=== PATIENT | male | born 1965 | race Caucasian/White ===

== ENCOUNTER → 2018-04-28 | Day surgery (SDC) | payer OTHER ==
[~2018-04-28] MED LIST: ACETAMINOPHEN 325 MG TAB PO PRN; ASPIRIN EC 325 MG TAB PO ONE; ATROPINE SULFATE 1 MG/10 ML SYR IVP PRN; DIAZEPAM 5 MG TAB PO ONE; FAMOTIDINE 20 MG TAB PO ONE; IOPAMIDOL (ISOVUE-370) 150 ML BTL IV ONE; LIDOCAINE 1% 300 MG/30 ML SDV ONE; MIDAZOLAM 2 MG/2 ML VIAL ONE; NITROGLYCERIN 0.4 MG BTL SL PRN; NS 1,000 ML IV SCH; ONDANSETRON 4 MG/2 ML VIAL IVP PRN; TEMAZEPAM 15 MG CAP PO PRN; diphenhydrAMINE 25 MG CAP PO ONE; fentaNYL 100 MCG/2 ML INJ ONE
[2018-04-28 09:19] LABS: PLATELET COUNT 117 10^3/uL (150-400)
--- NOTE | 2018-04-28 09:31 | PDPROPOC ---
Sedation Plan of Care Sedation Plan of Care: mental status noted, patient educated of risks, benefits , alternatives, patient can tolerate sedation ASA Classification: ASA 2 Planned drugs: fentanyl, midazolam Mallampati Score: Class 2 Mallampati Reference Image: Patient passed 3-3-2 rule?: Yes
--- NOTE | 2018-04-28 09:32 | PDHPUP ---
History & Physical Update H&P update statement: This history and physical update is based on an assessment of the patient which was completed after admission or registration (within 24 hours), but prior to the surgery/procedure. H&P update: H&P reviewed & patient examined, no change in patient's condition since H&P completed
[2018-04-28 10:28] LABS: INR 1.08 (0.83-1.16); PROTIME(PATIENT) 14.2 SEC (12.0-15.0)
--- NOTE | 2018-04-28 11:18 | CPIP ---
DATE OF PROCEDURE: 04/28/2018 INDICATION FOR PROCEDURE: Preoperative aortic AVR. PROCEDURE: 1. Nonselective right groin sheathogram. 2. 7-Faroese sheath in the right common femoral vein. 3. Right heart catheterization. 4. Bilateral coronary angiography. HISTORY: Briefly, this is a 52-year-old male with history of worsening dyspnea on exertion. The pat ient had an ultrasound, echocardiographic evidence as worsening underlying bicuspid, severe aortic st enosis. The patient was consented for a right and left heart catheterization, anticipation for event ual open AVR. DESCRIPTION OF PROCEDURE: After informed consent was obtained, the patient was brought to [facility] where the right groin was prepped and draped in a sterile fashion. ____Using lidocaine, a short 7-Faroese sh eath was introduced into the patient's right common femoral vein. A 6-Faroese sheath in the right com mon femoral artery. A JL4 catheter was advanced to the left coronary artery. The left coronary tenzin ry revealed normal left main. Left circumflex artery appeared to be codominant circulation giving of f a large marginal 1 proximally and an LPLS distally which was healthy and free of disease. There wa s what appeared to be a ramus intermedius coming off which was healthy and free of disease. The LAD appeared to be a long vessel which was healthy and free of disease with no significant issues. ____this was not a high diagonal artery, this was a ramus intermedius. After these images obtained, t he JL4 catheter was removed. The JR4 catheter was advanced to the right coronary artery. Images of the right coronary artery revealed normal os prox mid distal RCA and RPDA. Again, this is a codomina nt circulation. At this time, the JR4 catheter was removed below the FiberWire. A right heart diomedes terization was then advanced. Wedge pressure was mean of 11, A-wave of 12, V-wave of 13, PA pressure was systolic 24, diastolic 13, mean of 17, RV pressure systolic 34, diastolic 1 end of 12. RA press ure was mean of 7, A-wave 10, V-wave 9. Cardiac output was measured to be approximately 6.6 by [employer] with a cardiac index of 3.4. AO saturation was 99%. PA saturation was 83%. At this time, the [place]- [place] catheter was removed. Right groin was closed with 6-Faroese Angio-Seal. The 7-Faroese sheath was closed with manual pressure. Patient tolerated the procedure well with no complications. IMPRESSION: 1. Normal coronary arteries. 2. Normal pulmonic pressures. 3. Normal cardiac output. PLAN: The patient will be worked up as an outpatient for further evaluation by Dr. Willis from [facility] for open AVR. /[id number]/MODL
--- NOTE | 2018-04-30 08:36 | CPEKG ---
Test Reason : OPEN Blood Pressure : / mmHG Vent. Rate : 068 BPM Atrial Rate : 067 BPM P-R Int : 153 ms QRS Dur : 091 ms QT Int : 397 ms P-R-T Axes : 032 079 027 degrees QTc Int : 423 ms Sinus rhythm Confirmed by Giovanni Olivo ([id number]) on 04/30/2018 8:36:24 AM Referred By: Confirmed By:Giovanni Olivo
== END | disposition home or self-care (01) ==
LOC: FCATH 08:40
PROVIDERS: ATTEND Internal Medicine Cardiovascular Disease
DX: I35.0 Nonrheumatic aortic (valve) stenosis (principal); R06.02 Shortness of breath; R06.83 Snoring; F90.1 Attention-deficit hyperactivity disorder, predominantly hyperactive type
CPT/HCPCS: C1760; J1644; J2250; J3010; Q9967

== ENCOUNTER → 2018-05-12 | Outpatient (CLI) | payer OTHER | LOC: FIMAGING 08:18 | PROVIDERS: ATTEND Thoracic Surgery (Cardiothoracic Vascular Surgery) | DX: I35.0 Nonrheumatic aortic (valve) stenosis (principal) ==

== ENCOUNTER 2018-05-13 08:45 | Inpatient (IN) | payer OTHER ==
[2018-05-29] MEDS ORDERED: PHENYLEPHRINE HCL 50 MG in NS 250 ML IV ONE (06:00)
[2018-05-29] MEDS ORDERED: ceFAZolin 2 GM/DEXTROSE 100 ML IV ONE (06:00)
[2018-05-29] MEDS ORDERED: MUPIROCIN 2% 22 GM OINT NS ONE (06:00)
[2018-05-29] MEDS ORDERED: niCARdipine/NACL 200 ML IV ONE (06:00)
[2018-05-29] MEDS ORDERED: NOREPINEPHRINE BITARTRATE 16 MG in NS 250 ML IV ONE (06:00)
[2018-05-29] MEDS ORDERED: MANNITOL 25% 12.5 GM/50 ML VIAL IVP ONE (06:00)
[2018-05-29] MEDS ORDERED: CITRATE DEXTROSE SOLN 500 ML BAG MISC ONE (06:00)
[2018-05-29] MEDS ORDERED: AMINOCAPROIC ACID 5 GM/20 ML VIAL IV ONE (06:00)
[2018-05-29] MEDS ORDERED: SODIUM BICARBONATE 20 MEQ, LIDOCAINE 1% 10 ML in NORMOSOL-R 1,000 ML MISC ONE (06:00)
[2018-05-29] MEDS ORDERED: INSULIN REGULAR HUMAN 100 UNIT in NS 100 ML IV ONE (06:00)
[2018-05-29] MEDS ORDERED: LR 1,000 ML IV ONE (06:07)
[2018-05-29] MEDS ORDERED: MILRINONE/DEXTROSE/100 ML BAG IV ONE (06:16)
[2018-05-29] MEDS ORDERED: CALCIUM CHLORIDE 1 GM/10 ML INJ ONE ×2 (06:16→06:18)
[2018-05-29] MEDS ORDERED: PROTAMINE SULFATE 50 MG/5 ML VIAL IVP ONE (06:16)
[2018-05-29] MEDS ORDERED: AMIODARONE HCL 150 MG/3 ML VIAL ONE ×2 (06:17→06:19)
[2018-05-29] MEDS ORDERED: niCARdipine/NACL/200 ML BAG IV ONE (06:17)
[2018-05-29] MEDS ORDERED: NA BICARBONATE 50 MEQ/50 ML VIAL ONE (06:17)
[2018-05-29] MEDS ORDERED: DOPamine/DEXTROSE 400 MG/250 ML BAG IV ONE (06:17)
[2018-05-29] MEDS ORDERED: HEPARIN 10,000 UNIT/10 ML MDV (1,000 UNIT/ML) ONE ×2 (06:17→06:19)
[2018-05-29] MEDS ORDERED: NITROGLYCERIN/D5W 50 MG/250 ML BOTTLE IV ONE (06:18)
[2018-05-29] MEDS ORDERED: LIDOCAINE 2% 100 MG/5 ML SYR ONE (06:18)
[2018-05-29] MEDS ORDERED: ADENOSINE 6 MG/2 ML VIAL ONE (06:18)
[2018-05-29] MEDS ORDERED: ceFAZolin 1 GM VIAL ONE (06:18)
[2018-05-29] MEDS ORDERED: ALBUMIN 5% 250 ML BOTTLE IV ONE ×4 (06:18→14:45)
[2018-05-29] MEDS ORDERED: MAGNESIUM SULFATE 1 GM/2 ML VIAL ONE (06:19)
[2018-05-29] MEDS ORDERED: CITRATE DEXTROSE SOLN 500 ML BAG ONE (06:19)
[2018-05-29] MEDS ORDERED: methylPREDNISolone SOD SUCC 1 GM/8 ML VIAL ONE (06:19)
[2018-05-29] MEDS ORDERED: MIDAZOLAM 2 MG/2 ML VIAL IVP ONE (06:49)
--- NOTE | 2018-05-29 06:55 | PDANEPAE ---
ANE History of Present Illness 52 yo for avr ANE Past Medical History - Cardiovascular History Hx Hypertension: No Hx Arrhythmias: Yes Hx Chest Pain: No Hx Coronary Artery / Peripheral Vascular Disease: No Hx CHF / Valvular Disease: Yes Hx Palpitations: No Cardiovascular History Comment: MURMUR. AORTIC STENOSIS - Pulmonary History Hx COPD: No Hx Asthma/Reactive Airway Disease: No Hx Recent Upper Respiratory Infection: No Hx Oxygen in Use at Home: No Hx Sleep Apnea: No Sleep Apnea Screening Result - Last Documented: Negative - Neurologic History Hx Cerebrovascular Accident: No Hx Seizures: No Hx Dementia: No - Endocrine History Hx Diabetes: No - Renal History Hx Renal Disorders: Yes Renal History Comment: NOCTURIA - Liver History Hx Hepatic Disorders: No - Neurological & Psychiatric Hx Hx Neurological and Psychiatric Disorders: No - Cancer History Hx Cancer: No - Congenital Disorder History Hx Congenital Disorders: No - GI History Hx Gastrointestinal Disorders: Yes Gastrointestinal History Comment: HX OF COLON POLYPS. INTERMITTENT HEARTBURN USES TUMS - Other Health History Other Health History: CURRENTLY HAS SOME MILD URI SYMPTOMS WITH FEVER COUGH NON PRODUCTIVE - Chronic Pain History Chronic Pain: No - Surgical History Prior Surgeries: FRANCK ING HERNIA 2015. TONSILLECTOMY. VASECTOMY. COLONOSCOPY ANE Review of Systems Review of Systems: - Exercise capacity METS (RN): 4 METS ANE Patient History - Allergies Allergies/Adverse Reactions: No Known Allergies Allergy (Verified 04/21/18 17:28) - Home Medications Home medications: home medication list seen and reviewed Home Medications: Adderall 10 mg Tablet 05/29/18 [Last Taken 1 Month Ago ~04/29/18] Coq10 05/29/18 [Last Taken 05/28/18] Magnesium 05/29/18 [Last Taken 05/04/18] Multivitamins 05/29/18 [Last Taken 1 Week Ago ~05/22/18] Turmeric 05/29/18 [Last Taken 05/28/18] Vitamin C 05/29/18 [Last Taken 05/27/18] Vitamin D3 05/29/18 [Last Taken 05/28/18] Vyvanse 05/29/18 [Last Taken 05/28/18] - NPO status NPO Status: no food or drink >8 hours NPO Since - Liquids (Date): 05/29/18 NPO Since - Liquids (Time): 00:00 NPO Since - Solids (Date): 05/28/18 NPO Since - Solids (Time): 22:00 - Anes Hx Anes Hx: no prior problems - Smoking Hx Smoking Status: Never smoked ANE Labs/Vital Signs - Vital Signs Blood Pressure: 126/80 Heart Rate: 69 Respiratory Rate: 18 O2 Sat (%): 94 Height: 5 ft 8 in Weight: 76.204 kg ANE Physical Exam - Airway Neck exam: FROM Mallampati Score: Class 2 Mouth exam: normal dental/mouth exam - Pulmonary Pulmonary: no respiratory distress - Cardiovascular Cardiovascular: regular rate and rhythym - ASA Status ASA Status: III ANE Anesthesia Plan Anesthesia Plan: general endotracheal anesthesia Lines/Monitors: arterial line, central line, TOMÁS
[2018-05-29] MEDS ORDERED: MIDAZOLAM 2 MG/2 ML VIAL ONE (06:57)
[2018-05-29] MEDS ORDERED: DEXMEDETOMIDINE HCL 400 MCG in NS 100 ML IV SCH (07:00)
[2018-05-29] MEDS ORDERED: fentaNYL 100 MCG/2 ML INJ ONE (07:08)
[2018-05-29] MEDS ORDERED: REMIFENTANIL HCL 1 MG VIAL ONE (07:08)
[2018-05-29] MEDS ORDERED: PROPOFOL/EMULSION 500 MG/50 ML BOTTLE IV ONE (07:08)
[2018-05-29] MEDS ORDERED: ROCURONIUM 100 MG/10 ML VIAL ONE (07:09)
[2018-05-29] MEDS ORDERED: DEXAMETHASONE 4 MG/ML VIAL ONE (07:09)
[2018-05-29] MEDS ORDERED: SUGAMMADEX SODIUM 200 MG/2 ML VIAL IVP ONE (09:35)
[2018-05-29] MEDS ORDERED: ONDANSETRON 4 MG/2 ML VIAL ONE (09:35)
[2018-05-29] MEDS ORDERED: KETOROLAC 30 MG/1 ML SDV ONE (09:35)
[2018-05-29] MEDS ORDERED: BUPIVACAINE/EPI 0.5% 30 ML SDV ONE (09:35)
[2018-05-29] MEDS ORDERED: CEPACOL LOZENGE PO PRN (10:47)
[2018-05-29] MEDS ORDERED: BISACODYL 10 MG SUPP PR PRN (10:47)
[2018-05-29] MEDS ORDERED: niCARdipine/NACL 200 ML IV PRN (10:47)
[2018-05-29] MEDS ORDERED: SODIUM CL NASAL 45 ML BTL EACHNARE PRN (10:47)
[2018-05-29] MEDS ORDERED: ONDANSETRON 4 MG/2 ML VIAL IVP PRN (10:47)
[2018-05-29] MEDS ORDERED: POTASSIUM Cl (KCl) 50 ML IV PRN (10:47)
[2018-05-29] MEDS ORDERED: ONDANSETRON DISINTEGRATING 4 MG TAB PO PRN (10:47)
[2018-05-29] MEDS ORDERED: POLYETHYLENE GLYCOL 3350 17 GM PKT PO PRN (10:47)
[2018-05-29] MEDS ORDERED: MAGNESIUM HYDROXIDE 30 ML UDCUP PO PRN (10:47)
[2018-05-29] MEDS ORDERED: METOCLOPRAMIDE 10 MG/2 ML VIAL IVP PRN (10:47)
[2018-05-29] MEDS ORDERED: D50W 25 GM/50 ML SYR IVP PRN (10:47)
[2018-05-29] MEDS ORDERED: MEPERIDINE 25 MG/0.5 ML AMP IVP PRN (10:47)
[2018-05-29] MEDS ORDERED: fentaNYL 100 MCG/2 ML INJ IVP PRN (10:47)
[2018-05-29] MEDS ORDERED: LACTULOSE 20 GM/30 ML UDCUP PO PRN (10:47)
[2018-05-29] MEDS ORDERED: PANTOPRAZOLE SODIUM 40 MG VIAL IVP ONE (10:47)
[2018-05-29] MEDS ORDERED: oxyCODONE IR 5 MG TAB PO PRN (10:59)
[2018-05-29] MEDS ORDERED: INSULIN REGULAR HUMAN 100 UNIT in NS 100 ML IV SCH (11:00)
[2018-05-29] MEDS ORDERED: NS 1,000 ML IV SCH (11:00)
--- NOTE | 2018-05-29 11:19 | GOP ---
DATE OF OPERATION: 05/29/2018 SURGEON: Jerome Willis DO CAMPGROUND CARETAKER: Hemant. ANESTHESIOLOGIST: Estiven. PREOPERATIVE DIAGNOSIS: Critical aortic stenosis. POSTOPERATIVE DIAGNOSIS: Critical aortic stenosis. PROCEDURE PERFORMED: Aortic valve replacement through a minimally invasive upper sternotomy with a # 23 Inspiris bioprosthesis. FINDINGS: DESCRIPTION OF PROCEDURE: Patient was consented for surgery, brought to the operating room, intubate d. Monitoring lines were placed. Transesophageal echo was placed by Anesthesia. A partial upper st ernotomy teeing it off the third intercostal space was performed. A retractor was placed. Pericardi um was opened and tacked to the skin. Patient was heparinized and cannulated in the ascending aorta and right atrium without difficulty. A PA vent was placed as well. Cardiopulmonary bypass was begun . Transverse aortotomy was performed in a heavily calcified bicuspid aortic valve with extension down o nto the septum, and the mitral valve was carefully excised and debrided with CO2 infused and copious irrigation. We then placed interrupted 2-0 Tycron pledgeted mattress sutures through a 23 mm Inspiri s valve and secured with Cor-Knots. Aortotomy was closed in a 2-layer fashion. Cross-clamp was removed with suction on the ascending aor tic vent in Trendelenburg until no further air was identified. Patient was then easily weaned from b ypass and the heparin was reversed with protamine. The cannula was removed and oversewn. 2 ventricu lar pacing wires, 1 mediastinal drain placed into the left pleura and across the mediastinum was also placed. The thymic fat and pericardium were loosely reapproximated. The sternum was closed in thaddeus dard fashion. Patient was returned to ICU in stable condition. /[id number]/MODL
--- NOTE | 2018-05-29 11:41 | PDMN ---
Medical Necessity Medical necessity: [facility] S290 cardiac valve replacement or repair - INPT only CPT 64505 AUTH # [id number]
[2018-05-29] MEDS: ALBUMIN 5% 250 ML IV PRN ×2 (11:57→12:26)
--- NOTE | 2018-05-29 12:15 | CPEKG ---
Test Reason : OPEN Blood Pressure : / mmHG Vent. Rate : 065 BPM Atrial Rate : 068 BPM P-R Int : 189 ms QRS Dur : 088 ms QT Int : 434 ms P-R-T Axes : 084 086 067 degrees QTc Int : 452 ms Sinus arrhythmia Confirmed by Luke Goldman ([id number]) on 05/29/2018 12:15:16 PM Referred By: Confirmed By:Luke Goldman
[2018-05-29] MEDS: ceFAZolin 2 GM/DEXTROSE 100 ML IV SCH ×2 (13:32→21:23)
[2018-05-29] MEDS: ACETAMINOPHEN 325 MG TAB PO SCH ×3 (13:39→21:23)
[2018-05-29] MEDS ORDERED: ALBUMIN 5% 250 ML IV ONE (15:30)
--- NOTE | 2018-05-29 15:50 | POSTANESTH ---
Post Anesthetic Evaluation Cardiovascular Status: Normal, Stable Respiratory Status: Tx Decrease in SpO2 Level of Consciousness/Mental Status: Can Participate in Eval Pain Control: Adequate, Prn Tx Ordered Nausea/Vomiting Control: Adequate, Prn Tx Ordered Complications Possibly Related to Anesthesia: None Noted
[2018-05-29] MEDS: KETOROLAC 15 MG/1 ML SDV IVP SCH ×3 (16:06→23:58)
[2018-05-29] MEDS ORDERED: NOREPINEPHRINE BITARTRATE 16 MG in NS 250 ML IV SCH (17:30)
[2018-05-29] MEDS ORDERED: HEPARIN 5,000 UNIT/0.5 ML INJ SC SCH (23:00)
[2018-05-29] MEDS: MUPIROCIN 2% 22 GM OINT NS SCH (23:08)
[2018-05-30] MEDS: ACETAMINOPHEN 325 MG TAB PO SCH ×6 (02:13→20:04)
[2018-05-30] MEDS: ceFAZolin 2 GM/DEXTROSE 100 ML IV SCH ×3 (05:25→22:30)
[2018-05-30 05:47] LABS: PLATELET COUNT 79 10^3/uL (150-400)
[2018-05-30] MEDS: KETOROLAC 15 MG/1 ML SDV IVP SCH ×4 (05:53→23:35)
--- NOTE | 2018-05-30 08:51 | SOAPPROG ---
SOAP Progress Note Assessment/Plan: Assessment: POD#1 MICS AVR#23 Inspiris Resilia, upper inverse T sternotomy BAV with sx severe - Amenable to replacement via minimally invasive approach. Extubated in the OR. Stable early postop course. No vasoactive support. No dysrhythmias. No sig volume overload. Min CTOP. Small bilateral apical PTX from open pleura/hypoventilation, not air leak. Antithrombotic prophylaxis with ASA alone, pending stability of rhythm. AF prophylaxis with BB as tolerated. Acute expected blood loss anemia with thrombocytopenia - Stable. No transfusions required. Care with VTE prophylaxis while platelets depressed. Plan: Routine POD#1 orders lines, drains, orals and mobility. Remove Vwires. Remove drain later today. Consider start low dose metoprolol tonight. Baseline postop echo tomorrow. Tx to PCU. Dispo - Home without services next 1-2 days. 05/30/18 08:49 Subjective: Doing well. Satisfactory analgesia. Tolerating light activity with relative ease. No nausea. Hopeful for home tomorrow. Objective: Vital Signs Temp Pulse Resp BP Pulse Ox 36.8 C 63 16 121/61 H 96 05/30/18 04:00 05/30/18 06:00 05/30/18 06:00 05/30/18 06:00 05/30/18 06:00 Laboratory Results 05/30/18 05:30 05/30/18 05:30 05/29/18 05/30/18 05/31/18 05:59 05:59 05:59 Intake Total 2955 Output Total 1075 Balance 1880 Holding SB/SR with adequate SBPs. Off suppl O2. CTOP at removal criteria. CXR -> tiny residual rt PTX, tiny left pleural effusion with compressive atelectasis. Labs ok. Platelet count appears to have plateaued. - Pending Discharge Pending Discharge Within 48 Hours: Yes Pending Discharge Date: 06/01/18 Pending Discharge Time: 11:00 Physical Exam - Physical Exam General Appearance: alert, no apparent distress Respiratory: lungs clear (grossly) Cardiac/Chest: regular rate, rhythm, other (Sternotomy CDI. Vwire intact. Luis to bulb suction, serosang drainage) Abdomen: non-tender, soft Skin: warm/dry Extremities: other (no visible edema) ICD10 Worksheet Patient Problems: Problems Problem Status Onset Acute blood loss anemia Acute Aortic stenosis due to bicuspid aortic valve Acute S/P aortic valve replacement with bioprosthetic valve Acute ~05/29/18
[2018-05-30] MEDS: MULTIVITAMINS 1 EACH TAB PO SCH (10:34)
[2018-05-30] MEDS: PANTOPRAZOLE SODIUM 40 MG TAB PO SCH (10:34)
[2018-05-30] MEDS: MUPIROCIN 2% 22 GM OINT NS SCH ×2 (10:34→20:09)
[2018-05-30] MEDS: ASPIRIN 81 MG CHEWABLE TAB PO SCH (10:34)
[2018-05-30] MEDS: traMADol 50 MG TAB PO PRN ×2 (12:15→18:05)
--- NOTE | 2018-05-30 15:32 | ASMTCMCOM ---
CM Note CM Note Notes: CM reviewed pt's chart for d/c planning. Pt is a 52 y/o male with critical aortic stenosis who had an aortic valve replacement. Pt's d/c is anticipated to be in the next 1-2 days. No case mgmt needs have been identified. D/C Plan: Independent. Date Signed: 05/30/2018 03:32 PM Electronically Signed By:Nkechi Horne
[2018-05-30] MEDS: METOPROLOL TARTRATE 25 MG TAB PO SCH (20:05)
[2018-05-31] MEDS: ACETAMINOPHEN 325 MG TAB PO SCH ×3 (02:00→09:08)
[2018-05-31] MEDS: KETOROLAC 15 MG/1 ML SDV IVP SCH (05:34)
--- NOTE | 2018-05-31 08:21 | SOAPPROG ---
SOAP Progress Note Assessment/Plan: Assessment: POD#2 MICS AVR#23 Inspiris Resilia, upper inverse T sternotomy BAV with sx severe - Amenable to replacement via minimally invasive approach. Extubated in the OR. Stable early postop course. No vasoactive support. No dysrhythmias. No sig volume overload. Small bilateral apical PTX from open pleura/hypoventilation, not air leak. Drain removed POD#1 without incident. Antithrombotic prophylaxis with ASA alone, pending stability of rhythm. AF prophylaxis with BB as tolerated. Acute expected blood loss anemia with thrombocytopenia - Stable. No transfusions required. Care with VTE prophylaxis while platelets depressed. Plan: Cont metoprolol tartrate 12.5 mg BID. Baseline postop echo today. Dispo - Home without services later today or tomorrow. 05/31/18 08:19 Subjective: Feels fantastic. Tolerating light activity with ease. +BM. A little nervous about going home but would like to leave if cont to have a good morning. Objective: Vital Signs Temp Pulse Resp BP Pulse Ox 36.8 C 99 20 106/74 94 05/31/18 07:35 05/31/18 07:35 05/31/18 07:35 05/31/18 07:35 05/31/18 07:35 Laboratory Results 05/31/18 05:45 05/30/18 12:20 05/30/18 05/31/18 06/01/18 05:59 05:59 05:59 Intake Total 2955 250 100 Output Total 1075 1100 200 Balance 1880 -850 -100 Holding SR 70s-90s. Insufficient BP to uptitrate BB. Off O2. Adequate autodiuresis. CXR-> stable tiny apical PTXs, bibasilar atelectasis, L>R. Platelets yet to rebound. Physical Exam - Physical Exam General Appearance: alert, no apparent distress Respiratory: crackles (bases) Cardiac/Chest: regular rate, rhythm, other (Sternum grossly stable. Sternotomy and CT site CDI.) Abdomen: non-tender, soft Skin: warm/dry Extremities: other (no visible edema) ICD10 Worksheet Patient Problems: Problems Problem Status Onset Acute blood loss anemia Acute Aortic stenosis due to bicuspid aortic valve Acute S/P aortic valve replacement with bioprosthetic valve Acute ~05/29/18
[2018-05-31] MEDS ORDERED: SENNOSIDES/DOCUSATE SODIUM TAB PO SCH (09:00)
[2018-05-31] MEDS ORDERED: SENNOSIDES/DOCUSATE SODIUM TAB PO PRN (09:00)
[2018-05-31] MEDS: METOPROLOL TARTRATE 25 MG TAB PO SCH (09:06)
[2018-05-31] MEDS: ASPIRIN 81 MG CHEWABLE TAB PO SCH (09:06)
[2018-05-31] MEDS: PANTOPRAZOLE SODIUM 40 MG TAB PO SCH (09:06)
[2018-05-31] MEDS: MULTIVITAMINS 1 EACH TAB PO SCH ×2 (09:06→10:39)
[2018-05-31] MEDS: MUPIROCIN 2% 22 GM OINT NS SCH (09:15)
--- NOTE | 2018-05-31 10:49 | ECHO ---
[email or web address] [place] [id number] Main: [phone] Fax: Transthoracic Echocardiogram Name: DENNY ARREGUIN MR#: [id number] Study Date: 05/31/2018 Study Time: 10:10 AM Date of : 1965 Age: 52 year(s) Height: 172.7 cm (68 in.) Weight: 76.2 kg (168 lb.) BSA: 1.9 m2 Gender: Male Examination: Limited Echo Indication: Post AVR Image Quality: Contrast: Requested by: Maine Marcos BP: 111 mmHg/58 mmHg Heart Rate: Rhythm: Normal sinus rhythm Indication: Post AVR Procedure Staff Personnel Adviser: Cristian Steele RDCS Reading Physician: Ronaldo Boles MD Requesting Provider: Conclusions: Normal global systolic LV function. No regional wall motion abnormality. Mild mitral valve leaflet calcification is present. Mild mitral valve regurgitation is present. There is a #23 Monge Inspiris Resilia in the aortic valve position. The AV mean PG is 13 mmHg with a AV Vmax of 2.5 m/s. No valvular insufficiency. Trivial anterior pericardial effusion. There is a pleural effusion present. Measurements: Chambers Valvular Assessment AV/MV Valvular Assessment TV/PV Normal Normal Normal Name Value Range Name Value Range Name Value Range LVOTd 2.2 cm 2.2 cm mm AV Vmax: 2.51 m/s (1 m/s-1.7 m/s) AV maxP mmHg ( - ) AV meanP mmHg ( - ) LVOT Vmax: 0.91 m/s (0.7 m/s-1.1 m/s) MICHAEL (Vmax): 1.4 cm2 ( - ) MICHAEL (VTI): 1.6 cm ( - ) MV E Vmax: 0.78 m/s ( - ) MV A Vmax: 0.48 m/s ( - ) MV E/A: 1.63 ( - ) Continued Measurements: Chambers Valvular Assessment AV/MV Name Value Name Value Patient: DENNY ARREGUIN Study Date: 05/31/2018 Page 1 of 2 10:10 AM LADs Lon.8 cm MV E' Septal: 0.08 m/s LA Area: 14.9 cm2 MV E/E' Septal: 9.60 LA Volume: 37 ml MV E/E' Lateral: 6.80 LA Volume Index: 19.5 ml/m2 Findings: Left Ventricle: Normal global systolic LV function. No regional wall motion abnormality. Right Ventricle: Normal RV function. Left Atrium: The left atrium is normal in size. Right Atrium: The right atrium is normal in size. Mitral Valve: Mild mitral valve leaflet calcification is present. Mild mitral valve regurgitation is present. Aortic Valve: There is a #23 Monge Inspiris Resilia in the aortic valve position. The AV mean PG is 13 mmHg with a AV Vmax of 2.5 m/s. No valvular insufficiency. Tricuspid Valve: The tricuspid valve appears normal. Aorta: The aorta is normal. Pericardium: Trivial anterior pericardial effusion. There is a pleural effusion present. Exam Comments: This is a limited echo to eval the aortic valve.. (No Signature Object) Patient: DENNY ARREGUIN Study Date: 05/31/2018 Page 2 of 2 10:10 AM [id number]
[2018-05-31 11:28] VITALS: BP 102/73
--- NOTE | 2018-05-31 11:55 | PDDCSUM ---
Discharge Summary Discharge Summary: DATE OF ADMISSION: 05/29/18 DATE OF DISCHARGE: 05/31/18 DISPOSITION: Home, self-care PRINCIPAL ADMISSION DIAGNOSIS: Bicuspid aortic valve with severe stenosis and mild insufficiency PRINCIPAL DISCHARGE DIAGNOSES: 1. Status post minimally invasive aortic valve replacement with a bioprosthesis 2. Acute expected blood loss anemia with thrombocytopenia HISTORY OF PRESENT ILLNESS: 52 yo male with a BAV, exertional PVCs, declining exercise tolerance, and severe calcific with mild AI, admitted for an elective AVR via a minimally invasive approach. No assoc CAD, atrial arrhythmias, LVE, LVSD, LVDD, ascending aortic enlargement, or overt CHF. PERTINENT PAST MEDICAL HISTORY: ADHD, ocular migraines MEDICATIONS ON ADMISSION: MVI daily, Adderall 10 mg daily prn, Vyvanse 20 mg daily ALLERGIES/SENSITIVITIES: NKDA CONSULTANTS: none PROCEDURES/IMAGIN/12 (Alba): Aortic valve replacement with a 23 mm Monge Inspiris Resilia bovine pericardial bioprosthesis through a partial upper inverse T sternotomy. 05/31 (Ramana): Transthoracic echocardiogram: Nl chamber size x 4, nl BiV systolic fx, nl bioprosthetic valve fx, mild MR. ABBREVIATED HOSPITAL COURSE BY ACTIVE PROBLEM LIST: 1. BAV with sx severe - Amenable to replacement via a minimally invasive approach. Extubated in the OR. Stable early postop course. No dysrhythmias. Adequate auto-diuresis of modest volume overload. Tiny bilateral apical PTX from open pleura/hypoventilation, not air leak. Drain removed POD#1 without incident. Antithrombotic prophylaxis with ASA alone. AF prophylaxis with BB as tolerated. 2. Acute expected blood loss anemia with thrombocytopenia - Stable. No transfusions required. DISCHARGE CLINICAL INFORMATION: Sternum grossly stable. Sternotomy CDI, sutured, +Dermabond. HR 80s-100s. SBP 100s. SpO2 97% RA. Wt 4.7 kg above admission at 76.2 kilos. Hgb 10.6, HCT 29.9, Plt 74, Na 134, K 4.1, Cr 0.7 DISCHARGE MEDICATIONS: As on admission with the following NEW prescriptions: 1. Metoprolol tartrate 12.5 mg BID 2. Ultram 50 mg one-half to two tabs q 6h prn incisional discomfort FOLLOW UP APPOINTMENTS: 1. CV surgery: with Dr Willis at [facility] on 06/09 at 9:30 am . 2. Cardiology: with Dr Martínez at [facility] within 4-6 weeks. Appointment to be established during surgical visit. FOLLOW UP TESTING: CBC and CXR prior to surgical appointment.
--- NOTE | 2018-05-31 13:18 | ASMTDCNOTE ---
Case Management Discharge Discharge Order Complete? Answers: Yes Patient to Obtain Answers: via Family Medications Transportation Arranged Answers: Family/Friends Transport will Pick (Date 05/31/2018 12:00 AM & Time) Family Notified Answers: Yes Discharge Comments Notes: Feliberto to discharge home today, independent with family. Patient to follow up as recommended, CM available to support if any further needs arise. Date Signed: 05/31/2018 01:17 PM Electronically Signed By:Franny Muñoz
[2018-05-31] MEDS: traMADol 50 MG TAB PO PRN (13:40)
== END 2018-05-31 14:14 | disposition home or self-care (01) | DRG 267 ==
LOC: F2W 05-29 05:57 → F2N 05-29 06:47 → F2W 05-30 16:15
PROVIDERS: ADMIT Thoracic Surgery (Cardiothoracic Vascular Surgery); ATTEND Thoracic Surgery (Cardiothoracic Vascular Surgery)
PROC: 02RF3JZ Replacement of Aortic Valve with Synthetic Substitute, Percutaneous Approach (ICD-10-PCS; principal; 2018-05-29 07:15)
PROC: 5A1221Z Performance of Cardiac Output, Continuous (ICD-10-PCS; principal; 2018-05-29 07:15)
DX: I35.2 Nonrheumatic aortic (valve) stenosis with insufficiency (principal); D62 Acute posthemorrhagic anemia; D69.6 Thrombocytopenia, unspecified
CPT/HCPCS: 82435-PO; 82565-PO; 82947-PO; 83605-PO; 84132-PO; 84295-PO; 84520-PO; 85014-PO; 97161-GP; 97165-GO; 97535-GO; G8978-GP-CJ; G8979-GP-CI; J0153; J0282; J0690; J1100; J1265; J1644; J1815; J1885; J2001; J2150; J2250; J2260; J2270; J2370; J2405; J2704; J2720; J2930; J3010; J3475; P9041

== ENCOUNTER → 2018-05-28 | Outpatient (CLI) | payer OTHER | LOC: FIMAGING 09:39 | PROVIDERS: ATTEND Thoracic Surgery (Cardiothoracic Vascular Surgery) | DX: Z01.811 Encounter for preprocedural respiratory examination (principal); I35.0 Nonrheumatic aortic (valve) stenosis ==

== ENCOUNTER → 2018-06-09 | Outpatient (CLI) | payer OTHER | LOC: FIMAGING 08:51 | PROVIDERS: ATTEND Thoracic Surgery (Cardiothoracic Vascular Surgery) | DX: J90 Pleural effusion, not elsewhere classified (principal); Z95.2 Presence of prosthetic heart valve ==